=== PATIENT | male | born 1990 | race Caucasian/White ===

== ENCOUNTER 2023-07-23 10:09 | Emergency (ER) | payer OTHER, SELFPAY ==
--- NOTE | ~2023-07-23 | CT_ITS ---
EXAMINATION: CT ABDOMEN AND PELVIS WITHOUT CONTRAST CLINICAL INFORMATION: Right flank pain evaluate for stone hydro COMPARISON: None available. TECHNIQUE: Multidetector volumetric imaging was performed from the superior aspect of the liver through the pubic symphysis. Sagittal and coronal reformatted images were obtained on the technologist's workstation. This CT examination was performed using dose optimization techniques as appropriate, variously including the following: *Automated exposure control *Adjustment of mA and/or kV according to patient size (this includes techniques or standardized protocols for targeted exams where dose is matched to indication/reason for exam; i.e. extremities or head) *Use of iterative reconstruction technique DLP: 320.33 mGy-cm FINDINGS: LUNG BASES: The visualized lung bases are unremarkable. LIVER, GALLBLADDER, AND BILIARY TREE: The liver is normal in size, shape, and attenuation. No focal hepatic lesion or biliary ductal dilatation is present. The gallbladder is unremarkable with no evidence of radiopaque gallstones, gallbladder wall thickening, or obvious pericholecystic inflammatory changes. PANCREAS: Unremarkable. SPLEEN: Unremarkable. ADRENAL GLANDS: Unremarkable. KIDNEYS AND URETERS: Mild to moderate right-sided hydroureteronephrosis secondary to a 7 mm calculus at the right junction. Additional 3 mm calculus noted in the right renal upper pole. No left-sided nephrolithiasis or hydronephrosis. BLADDER: Mild urinary bladder wall thickening which may reflect elements of cystitis. GASTROINTESTINAL TRACT: Fecal loading throughout the colon. The small and large bowel are unremarkable. The appendix is unremarkable. ABDOMINAL WALL: Tiny fat filled umbilical hernia. LYMPH NODES: No enlarged lymph nodes per size criteria. VASCULAR: Abdominal aorta is nonaneurysmal. PELVIC VISCERA: Prostate measures 3.9 cm. OSSEOUS STRUCTURES: Unremarkable. CT/CT abdomen pelvis wo IV con IMPRESSION: 1. Mild to moderate right-sided hydroureteronephrosis secondary to a 7 mm calculus at the right junction. Additional 3 mm calculus noted in the right renal upper pole. 2. Mild urinary bladder wall thickening which may reflect elements of cystitis.
[2023-07-23 10:44] VITALS: BP 120/86; PULSE 61; RESP 18; TEMP 36.2; O2SAT 99; BMI 24.5
[2023-07-23] MEDS: Ondansetron ODT 4 MG TAB.RAPDIS TRANSLINGU (10:54)
[2023-07-23 10:56] LABS: MANUAL DIFF FLAG NO
[2023-07-23 10:58] LABS: Basophils Absolute Auto 0.1 X10*3/uL (0.0-0.2); Basophils Percent Auto 0.4 % (0-2); Eosinophils Absolute Auto 0.1 X10*3/uL (0.0-0.4); Eosinophils Percent Auto 0.7 % (0-4); Hematocrit 44.4 % (42.0-52.0); Hemoglobin 16.2 g/dl (14.0-18.0); Imm Gran Abs Auto 0.07 X10*3/uL (0.00-0.03); Imm Gran Pct Auto 0.4 % (0.0-0.4); Lymphocytes Absolute Auto 1.4 X10*3/uL (1.2-4.9); Lymphocytes Percent Auto 7.6 % (20-40); Mean Corpuscular HGB Conc 36.5 g/dl (31.0-36.0); Mean Corpuscular Hemoglobin 33.1 pg (27.0-33.0); Mean Corpuscular Volume 90.6 fL (80.0-98.0); Mean Platelet Volume 9.7 fL (9.4-12.4); Monocytes Absolute Auto 0.9 X10*3/uL (0.1-1.2); Monocytes Percent Auto 5.3 % (2-11); Neutrophils Absolute Auto 15.3 x10*3/uL (2.0-8.3); Neutrophils Percent Auto 85.6 % (45-73); Platelet Count 292 X10*3/uL (160-400); Red Cell Distribution Width 12.1 % (11.0-16.0); White Blood Count 17.9 X10*3/uL (4.8-10.8)
[2023-07-23 11:16] LABS: Alanine Aminotransferase 14 U/L (0-40); Albumin Level 4.8 g/dL (3.5-5.0); Alkaline Phosphatase 63 U/L (39-117); Anion Gap 18 (12-20); Aspartate Amino Transferase 26 U/L (5-37); Bilirubin Total 0.7 mg/dL (0.0-1.0); Blood Urea Nitrogen 18 mg/dL (9-16); Calcium 10.3 mg/dL (8.4-10.2); Carbon Dioxide 23 mmol/L (22-29); Chloride 103 mmol/L (96-108); Creatinine Clr Calc Pharmacy 64.2; Estimated Glomerular Filt Rate 57; Glucose Random 110 mg/dL (60-115); Potassium 4.3 mmol/L (3.3-5.1); Sodium 140 mmol/L (135-145); Total Protein 7.7 g/dL (6.5-8.0)
--- NOTE | 2023-07-23 12:22 | ED_ITS ---
HPI - Male Genitourinary General Chief complaint: Urogenital-Male Stated complaint: Kidney Stone Time Seen by Provider: 07/23/23 12:18 Source: patient, RN notes reviewed and old records reviewed Mode of arrival: ambulatory Limitations: no limitations History of Present Illness HPI Narrative: 33 year old male with no significant pmhx presents to the ED for evaluation of right flank pain x2 weeks. States he was seen at urgent care for this 2 weeks ago. He was told the only abnormality on labs was high white count . He was sent for outpatient ultrasound which showed inflammation of ureter . He was not advised to come to the ED. He states that the right flank pain eventually went away until yesterday when it acutely worsened. Reports nausea, vomiting and chills that began last night. Admits to vomiting up bile. He has been taking Tylenol without relief. Last dose of Tylenol at 8:00 a.m. this morning. This did not start after eating yesterday. Eating does not seem to worsen the pain. Admits to associated difficulty urinating however was able to provide urine sample in ED today. Denies any abdominal pain however does report minimal pain radiation to groin. Denies history of abdominal surgery. Denies history of renal stones. Denies documented fever, sore throat, cough, chest pain, sob, hematemesis, melena, hematochezia, brbpr, dysuria, hematuria. Related Data Previous Rx's ?Medication ?Instructions ?Recorded naproxen 500 mg tablet 500 mg PO BID PRN pain 7 days #14 07/23/23 tabs oxycodone 5 mg capsule 5 mg PO Q8H PRN pain 3 days #9 caps 07/23/23 tamsulosin 0.4 mg capsule (Flomax) 0.4 mg PO DAILY 7 days #7 caps 07/23/23 ondansetron 4 mg disintegrating 4 mg PO Q6H PRN nausea and 07/24/23 tablet vomiting #8 tabs Allergies Allergy/AdvReac Type Severity Reaction Status Date / Time No Known Allergies Allergy Verified 07/23/23 10:49 Review of Systems 2 Review of Systems: Constitutional: No fever, chills, fatigue, night sweats, weight changes ENT/Mouth: No ear pain, hearing loss, nasal congestion, sinus pain, rhinorrhea, sore throat Eyes: No eye pain, swelling, redness, vision changes, discharge Cardio: No chest pain, palpitations, MARTE, orthopnea, peripheral edema Pulm: No SOB, cough, sputum, wheezing, dyspnea, hemoptysis GI: No nausea, vomiting, hematemesis, abdominal pain, diarrhea, constipation, hematochezia, melena : No irregular bleeding, dysuria, frequency, urgency, hesitancy, hematuria, urinary flow changes, urinary incontinence or retention, +right flank pain MSK: No back pain, neck pain, joint pain, myalgias Skin: No lesions, rashes Neuro: No weakness, numbness, paresthesias, LOC, dizziness, headache Psych: No anxiety/panic, depression, SI/HI, AH/VH All other systems reviewed and are negative. [facility] Past Medical History Attestation statement: The following information was validated with the patient. Source: old records reviewed and nursing notes reviewed Surgical History (Updated 07/23/23 @ 15:56 by Tatyana Cotto RN) History of placement of ear tubes History of surgery on arm Social History Social History Alcohol intake: current Alcohol intake frequency: 0-2 drinks per day Alcohol type: beer, wine and hard liquor Smoked in Last 30 Days: Yes Use of substances other than those prescribed or required for medical reasons: Yes Substance Use Type: Marijuana Substance Use Frequency: Daily Advance Directives: No Advance Directives Information Provided: Yes Do you have a plan to hurt others: No Plan Physical Exam 2 Vital Signs: Vital Signs: Last Vital Signs Temp 97.9 F 07/23/23 20:39 Pulse 80 07/23/23 20:39 Resp 18 07/23/23 20:39 BP 127/80 07/23/23 20:39 Pulse Ox 98 07/23/23 20:39 O2 Del Method Room Air 07/23/23 20:39 BMI result Body Mass Index 24.5 Vital signs stable, afebrile. Const: Other: In obvious discomfort secondary to pain General: cooperative, healthy appearing and no acute distress O rientation/consciousness: patient oriented x3 Limitations: no limitations HEENT: Head: Yes normal to inspection, Yes No palpable skull fracture present, Yes normocephalic and Yes atraumatic Eyes: General: appearance normal, both eyes and all related structures C onjunctivae: conjunctivae normal Sclerae: sclerae normal Pupils: Equal, round and reactive pupils present Neck: Neck: Yes normal visual inspection, Yes full ROM, Yes no lymphadenopathy and Yes no meningeal signs Resp: Effort & Inspection: normal respiratory effort and able to speak in complete sentences Auscultation: clear to auscultation bilaterally Cardio: Rate: regular rate Rhythm: regular rhythm GI: Other: + abdomen soft, nondistended, nontender to palpation. No rebound tenderness or guarding. Normoactive bowel sounds x4. negative Person's sign. No McBurney point tenderness. Negative Rovsing sign. Inspection: Yes normal to inspection, No abdominal wall ecchymosis and No visible peristalsis : Other: + right CVAT Back/Spine/Pelvis: Other: No midline spinous tenderness or step off deformity. No paraspinal muscle tenderness. Skin: General skin exam: no rashes or lesions noted Neuro: General: patient oriented x3, gait normal and no meningeal signs C ranial nerves: Yes Equal, round and reactive pupils present Course Course Course Narrative: 1405-- CBC with leukocytosis to 17.9 with left shift. No anemia. H&H stable. Chemistry without acute electrolyte abnormality requiring intervention. SCARLETT with BUN 18 and creatinine 1.45 > patient receiving IV fluids. Normal liver function. Total bili WNL. Lactic acid WNL. lipase WNL > unlikely pancreatitis. urine showing high protein. no infection or blood. > unclear if increased WBC is secondary to multiple episodes of vomiting. No concern for sepsis at this time. patient received IV morphine and zofran for symptoms. awaiting CT read. 154-- CT abdomen/pelvis showing mild to moderate right-sided hydroureternephrosis secondary to 7 mm calculus at right junction with a 3 mm calculus noted in the right renal upper pole. I did discuss these findings with Dr. Gutierrez who currently on her way into a urology procedure however recommends another L of IV fluids at this time along with pain control. She will re- evaluate once she is out of the OR. 0.5 dilaudid ordered. 1652-- Spoke with Dr. Gutierrez who upon reviewing scan and chart, recommends 15mg toradol, a third liter of fluids and one dose of prednisone in ED. I did mention that the patient has a slight SCARLETT with BUN 18 and creatinine 1.45 and she states one time dose of Toradol 15 mg will be acceptable. She states that if his pain is well managed after these interventions, he may be discharged home on flomax x14 days and 2 day course of prednisone with outpatient follow up this week. 1755-- On re-evaluation, patient continues to endorse severe right flank pain. I do not feel comfortable discharging patient home at this time and pain is not well controlled. Will reach out to Dr. Gutierrez for recommendation. 1910-- Received call back from Dr. Gutierrez regarding patient's continued symptoms despite attempts at pain management. Patient last ate >8 hours ago. She states that she will review and call me back. Sign out given to Jigar MEDEROS pending uro call back and disposition. Dr. Gutierrez aware that Jigar is now that point of contact regarding this patient. He is stable at the end of my shift. Reevaluation(s) Reevaluation #1: Went to re-evaluate patient and patient states he feels better. Patient states pain is manageable with Dilaudid, and slightly returning but he is not in distress and wants to go home. Admission was discussed with patient. Patient's re-evaluation exam and history was discussed with Dr. Gutierrez of Urology who states patient can be discharged with Dilaudid naproxen and zofran. Patient agreeable with plan and will return if symptoms worsenend. patient explained worrisome sigs. Case discussed with Dr. Hermosillo who states because this is patient first time on narcotics, dilaudid will be too much for patient due to high risks of respiratory depression. She recommends oxycodone. patient agreeable with plan. Time: 20:37 Medications Administered Discontinued Medications Generic Name Dose Route Start Last Admin Trade Name Leilani PRN Reason Stop Dose Admin Acetaminophen 975 mg 07/23/23 13:09 07/23/23 13:23 Acetaminophen 325 Mg Tablet PO 07/23/23 13:10 975 mg ONCE ONE Administration Hydromorphone HCl 0.5 mg 07/23/23 16:08 07/23/23 16:18 Hydromorphone Hcl 0.5 Mg/0.5 Ml Syringe IVPUSH 07/23/23 16:09 0.5 mg ONCE ONE Administration Protocol Hydromorphone HCl 0.5 mg 07/23/23 17:52 07/23/23 18:19 Hydromorphone Hcl 0.5 Mg/0.5 Ml Syringe IM 07/23/23 17:53 0.5 mg ONCE ONE Administration Protocol Sodium Chloride 1,000 mls @ 999 mls/hr 07/23/23 12:30 07/23/23 13:50 Ns IV 07/23/23 13:30 Infused .Q1H1M MIGUEL Infusion Sodium Chloride 1,000 mls @ 999 mls/hr 07/23/23 15:45 07/23/23 17:00 Ns IV 07/23/23 16:45 Infused .Q1H1M MIGUEL Infusion Sodium Chloride 1,000 mls @ 999 mls/hr 07/23/23 17:00 07/23/23 18:01 Ns IV 07/23/23 18:00 Infused .Q1H1M MIGUEL Infusion Ketorolac Tromethamine 15 mg 07/23/23 16:56 07/23/23 16:58 Ketorolac Tromethamine 15 Mg/Ml Vial IVPUSH 07/23/23 16:57 15 mg ONCE ONE Administration Morphine Sulfate 2 mg 07/23/23 12:30 07/23/23 12:45 Morphine Sulfate 2 Mg/Ml Cartridge IVPUSH 07/23/23 12:31 2 mg ONCE ONE Administration Protocol Morphine Sulfate 2 mg 07/23/23 14:12 07/23/23 14:17 Morphine Sulfate 2 Mg/Ml Cartridge IVPUSH 07/23/23 14:13 2 mg ONCE ONE Administration Protocol Ondansetron HCl 4 mg 07/23/23 10:50 07/23/23 10:54 Ondansetron Odt 4 Mg Tab.Rapdis TRANSLINGU 07/23/23 10:51 4 mg ONCE ONE Administration Ondansetron HCl 4 mg 07/23/23 12:43 07/23/23 12:45 Ondansetron Hcl 4 Mg/2 Ml Vial IVPUSH 07/23/23 12:44 4 mg ONCE ONE Administration Prednisone 20 mg 07/23/23 16:51 07/23/23 16:56 Prednisone 20 Mg Tablet PO 07/23/23 16:52 20 mg ONCE ONE Administration Medical Decision Making Medical Decision Making MDM Narrative: 33 year old male with no significant pmhx presents to the ED for evaluation of right flank pain x2 weeks. Vital signs stable. Afebrile. Normotensive. Not tachycardic. On exam, abdomen soft, nondistended, nontender to palpation. No rebound tenderness or guarding. Normoactive bowel sounds x4. negative Person's sign. No McBurney point tenderness. Negative Rovsing sign. There is left CVAT. Ambulating with steady gait. Skin W/D/I. No rashes. Differential diagnosis includes UTI, renal colic, nephrolithiasis, hydronephrosis, pyelonephritis, cholecystitis, appendicitis. Unlikely constipation, SBO, ischemic bowel, pancreatitis. Plan for labs, lactic, cultures, UA, pain control, IVF, CT scan, and re- evaluation. Differential Diagnosis Differential Diagnoses: The differential diagnosis associated with the presentation includes as above. Admission/Observation Consideration of admission/observation: Escalation of care including admission/observation considered Admission considered on presentation. Consult Healthcare Provider Management of the patient was discussed with: Self Storage Manager (Urologist Dr. Mg Gutierrez) Lab Data MDM Lab Attestation statement: I reviewed the patient's lab results. as above. 07/23/23 10:53 07/23/23 10:53 Labs: Lab Results 07/23/23 07/23/23 07/23/23 Range/Units 10:53 12:39 12:40 WBC 17.9 H (4.8-10.8) X10*3/uL RBC 4.90 (4.60-5.80) X10*6/uL Hgb 16.2 (14.0-18.0) g/dl Hct 44.4 (42.0-52.0) % MCV 90.6 (80.0-98.0) fL MCH 33.1 H (27.0-33.0) pg MCHC 36.5 H (31.0-36.0) g/dl RDW 12.1 (11.0-16.0) % Plt Count 292 (160-400) X10*3/uL MPV 9.7 (9.4-12.4) fL Immature Gran % (Auto) 0.4 (0.0-0.4) % Neut % (Auto) 85.6 H (45-73) % Lymph % (Auto) 7.6 L (20-40) % [place] % (Auto) 5.3 (2-11) % Eos % (Auto) 0.7 (0-4) % Baso % (Auto) 0.4 (0-2) % Lymph # (Auto) 1.4 (1.2-4.9) X10*3/uL [place] # (Auto) 0.9 (0.1-1.2) X10*3/uL Eos # (Auto) 0.1 (0.0-0.4) X10*3/uL Baso # (Auto) 0.1 (0.0-0.2) X10*3/uL Abs Immat Gran (auto) 0.07 H (0.00-0.03) X10*3/uL Absolute Neuts (auto) 15.3 H (2.0-8.3) x10*3/uL Absolute Nucleated RBC 0.000 (0.0-0.012) X10*3/uL Nucleated RBC % (auto) 0.0 (0.0-0.2) /100WBC Sodium 140 (135-145) mmol/L Potassium 4.3 (3.3-5.1) mmol/L Chloride 103 (96-108) mmol/L Carbon Dioxide 23 (22-29) mmol/L Anion Gap 18 (12-20) BUN 18 H (9-16) mg/dL Creatinine 1.45 H (0.5-1.4) mg/dL Estim Creat Clear Calc 64.2 Estimated GFR 57 Random Glucose 110 (60-115) mg/dL Lactic Acid 1.1 (0.5-2.0) mmol/L Calcium 10.3 H (8.4-10.2) mg/dL Total Bilirubin 0.7 (0.0-1.0) mg/dL AST 26 (5-37) U/L ALT 14 (0-40) U/L Alkaline Phosphatase 63 (39-117) U/L Total Protein 7.7 (6.5-8.0) g/dL Albumin 4.8 (3.5-5.0) g/dL Lipase 22 (8-78) U/L Urine Color Yellow Urine Appearance Cloudy Urine pH >= 9.0 (5.0-9.0) Ur Specific [place] 1.020 (1.005-1.025) Urine Protein 30 (1+) H (Neg-Trace) mg/dL Urine Glucose (UA) Negative (Negative) mg/dL Urine Ketones 40 (Negative) mg/dL Urine Blood Negative (Negative) Urine Nitrite Negative (Negative) Ur Leukocyte Esterase Negative (Negative) Urine RBC 0-2 (0-2) /HPF Urine WBC 0-5 (0-5) /HPF Ur Squamous Epith Cells 0-2 (0-2) /HPF Urine Bacteria None Seen (None Seen) Hyaline Casts 0-2 (0-2) /LPF Independent Interpretation I performed an independent interpretation of an: CT Scan Interpretation: CT abd/pelvis shows stone at right UVJ, agree with radiologist's interpretation. Radiology Impression Discussion of test interpretation with radiology: I have reviewed the radiologist's reading. Radiologist Impression: EXAMINATION: CT ABDOMEN AND PELVIS WITHOUT CONTRAST CLINICAL INFORMATION: Right flank pain evaluate for stone hydro COMPARISON: None available. TECHNIQUE: Multidetector volumetric imaging was performed from the superior aspect of the liver through the pubic symphysis. Sagittal and coronal reformatted images were obtained on the technologist's workstation. This CT examination was performed using dose optimization techniques as appropriate, variously including the following: *Automated exposure control *Adjustment of mA and/or kV according to patient size (this includes techniques or standardized protocols for targeted exams where dose is matched to indication/reason for exam; i.e. extremities or head) *Use of iterative reconstruction technique DLP: 320.33 mGy-cm FINDINGS: LUNG BASES: The visualized lung bases are unremarkable. LIVER, GALLBLADDER, AND BILIARY TREE: The liver is normal in size, shape, and attenuation. No focal hepatic lesion or biliary ductal dilatation is present. The gallbladder is unremarkable with no evidence of radiopaque gallstones, gallbladder wall thickening, or obvious pericholecystic inflammatory changes. PANCREAS: Unremarkable. SPLEEN: Unremarkable. ADRENAL GLANDS: Unremarkable. KIDNEYS AND URETERS: Mild to moderate right-sided hydroureteronephrosis secondary to a 7 mm calculus at the right junction. Additional 3 mm calculus noted in the right renal upper pole. No left-sided nephrolithiasis or hydronephrosis. BLADDER: Mild urinary bladder wall thickening which may reflect elements of cystitis. GASTROINTESTINAL TRACT: Fecal loading throughout the colon. The small and large bowel are unremarkable. The appendix is unremarkable. ABDOMINAL WALL: Tiny fat filled umbilical hernia. LYMPH NODES: No enlarged lymph nodes per size criteria. VASCULAR: Abdominal aorta is nonaneurysmal. PELVIC VISCERA: Prostate measures 3.9 cm. OSSEOUS STRUCTURES: Unremarkable. CT/CT abdomen pelvis wo IV con IMPRESSION: 1. Mild to moderate right-sided hydroureteronephrosis secondary to a 7 mm calculus at the right junction. Additional 3 mm calculus noted in the right renal upper pole. 2. Mild urinary bladder wall thickening which may reflect elements of cystitis. Independent Historian Clinical information obtained from an independent historian. History obtained from or confirmed by: Parent (dad) Prescription Management I considered prescription management with: Pain Medication and Other (prednisone, flomax) Social Determinants Patient?s care significantly limited by Social Determinants of Health including: Other Social Determinant of Health Critical Care Time Critical Care Time Critical Care Time: Yes Total Critical Care Time: 120 Attestation: Critical care time in the amount of 120 minutes has been provided to the patient in terms of direct patient care, frequent reevaluation, consultation with urology, review and interpretation of medical data and results, and management of potentially life-threatening conditions. This is all outside of any medical procedures. Discharge Plan Discharge Clinical Impression: Calculus of ureterovesical junction (UVJ) Patient Disposition: Home, Self-Care Instructions: Ureteral Stones (ED) Additional Instructions: RECOMMEND FOLLOW-UP WITH UROLOGIST TOMORROW. RETURN TO ED IMMEDIATELY FOR SEVERE PAIN IN THE ABDOMEN, FLANK PAIN, FEVER, CHILLS, NAUSEA, VOMITING, DYSURIA, HEMATURIA, OR ANY OTHER CONCERNING SYMPTOMS. CT/CT abdomen pelvis wo IV con IMPRESSION: 1. Mild to moderate right-sided hydroureteronephrosis secondary to a 7 mm calculus at the right junction. Additional 3 mm calculus noted in the right renal upper pole. 2. Mild urinary bladder wall thickening which may reflect elements of cystitis. Prescriptions: New oxycodone 5 mg capsule 5 mg PO Q8H PRN (Reason: pain) 3 Days Qty: 9 0RF Rx Instructions: Partial Fill upon patient request. naproxen 500 mg tablet 500 mg PO BID PRN (Reason: pain) 7 Days Qty: 14 0RF tamsulosin [Flomax] 0.4 mg capsule 0.4 mg PO DAILY 7 Days Qty: 7 0RF ondansetron 4 mg tablet,disintegrating 4 mg PO Q6H PRN (Reason: nausea and vomiting) Qty: 8 0RF Referrals: [facility] [Provider Group] (Ureter stone 7 mm) Stand Alone Forms: Work/School Release Interventions: ED Discharge Assessment Last Done: 07/23/23 20:39 Discharge Date/Time: 07/23/23 20:46 Print Language: Czech
[2023-07-23] MEDS: ondansetron HCL 4 MG/2 ML VIAL IVPUSH (12:45)
[2023-07-23] MEDS: Morphine Sulfate 2 MG/ML CARTRIDGE IVPUSH ×2 (12:45→14:17)
[2023-07-23] MEDS: 0.9 % Sodium Chloride 1,000 ML 999 ML IV ×3 (12:45→17:00)
--- NOTE | 2023-07-23 12:51 | PC.NURSE ---
patient a&ox3, iv inserted, bc drawn, ivf started per order, pt medicated per order, call robertson within reach, will continue to monitor
[2023-07-23 12:55] LABS: Appearance Urine Cloudy; Color Urine Yellow; Glucose Urine UA Negative (Negative); Leukocyte Esterase Urine Negative (Negative); Nitrite Urine Negative (Negative); PH >= 9.0 (5.0-9.0); UMIC TRIGGER UACC YES; Urine Blood Negative (Negative); Urine Ketones 40 mg/dL (Negative); Urine Protein 30 (1+) mg/dL (Neg-Trace)
[2023-07-23 12:57] LABS: Bacteria Urine None Seen (None Seen); Hyaline Casts Urine 0-2 /LPF (0-2); RBC Urine 0-2 /HPF (0-2); Squamous Epithelial Cell Urine 0-2 /HPF (0-2); WBC Urine 0-5 /HPF (0-5)
[2023-07-23 13:06] LABS: Lactic Acid 1.1 mmol/L (0.5-2.0)
[2023-07-23] MEDS: Acetaminophen 325 MG TABLET 975 MG PO (13:23)
[2023-07-23 13:51] LABS: Lipase 22 U/L (8-78)
--- NOTE | 2023-07-23 14:20 | PC.NURSE ---
pt medicated for 9/10 flank pain, call robertson within reach, will continue to monitor
[2023-07-23] MEDS: HYDROmorphone HCl 0.5 MG/0.5 ML SYRINGE IVPUSH (16:18)
--- NOTE | 2023-07-23 16:21 | PC.NURSE ---
pt medicated per order
--- NOTE | 2023-07-23 16:41 | PC.NURSE ---
pt a&ox3, pt c/o increasing pain- pt medicated for pain per order, IVF continue to run per order, call robertson within reach, will continue to monitor
[2023-07-23] MEDS: predniSONE 20 MG TABLET PO (16:56)
[2023-07-23] MEDS: Ketorolac Tromethamine 15 MG/ML VIAL IVPUSH (16:58)
[2023-07-23] MEDS: HYDROmorphone HCl 0.5 MG/0.5 ML SYRINGE IM (18:19)
--- NOTE | 2023-07-23 18:21 | PC.NURSE ---
pt medicated for 10 pain
[2023-07-23 20:02] VITALS: BP 127/80; PULSE 80; RESP 18; TEMP 36.6; O2SAT 98
--- NOTE | 2023-07-23 20:38 | PC.NURSE ---
Pt a&o, no sob or chest pain, reviewed discharge instructions with pt , pt verbalized understanding no sign of distress.
[2023-07-23 20:39] VITALS: BP 127/80; PULSE 80; RESP 18; TEMP 36.6; O2SAT 98
== END 2023-07-23 20:46 | disposition home or self-care (01) ==
PROVIDERS: Physician Assistant Medical; Emergency Provider Emergency Medicine
DX: N13.2 Hydronephrosis with renal and ureteral calculous obstruction (principal); F17.210 Nicotine dependence, cigarettes, uncomplicated
CPT/HCPCS: 36415; 74176; 80053; 81001; 83605; 83690; 85025; 87040; 96361; 96372; 96374; 96375; 96376; 99285; J1170; J1885; J2270; J2405

== ENCOUNTER 2023-07-26 06:46 | Day surgery (SDC) | payer OTHER, SELFPAY ==
[2023-07-26] VITALS (10 sets, daily range): BP systolic 119–130; BP diastolic 63–83; PULSE 61–77; RESP 13–20; TEMP 25.5–36.8; O2SAT 98–100; BMI 24.5
--- NOTE | ~2023-07-26 | US_ITS ---
EXAMINATION: US RENAL RIGHT CLINICAL INFORMATION: Right flank pain. COMPARISON: CT abdomen/pelvis from 07/23/2023 TECHNIQUE: Sonographic imaging examination is focused on the right kidney. FINDINGS: The right kidney measures 10.7 x 4.9 x 6.2 cm (sag x AP x trans). The renal cortical thickness is normal. No focal parenchymal lesion. The cortex is diffusely hyperechoic. Query if there is any history of parenchymal renal disease. [id number] hydronephrosis is present. No perinephric fluid collection. 0.3 cm echogenic focus at the upper pole is consistent with a calyceal stone. Also, there are other small < 0.3 cm echogenic foci within calyces suspicious for additional sites of nephrolithiasis. Images acquired at the level the bladder show a stone at the ureterovesical junction measuring up to 0.7 cm in length. US/US renal RT IMPRESSION: * There is an obstructing stone at the right ureterovesical junction. * Right renal nephrolithiasis is evident. * The renal cortex is diffusely hyperechoic; correlate for any history of medical renal disease.
--- NOTE | ~2023-07-26 | FL_ITS ---
EXAMINATION: XR FLUOROSCOPY WITH IMAGES CLINICAL INFORMATION: Ureteroscopy, retrograde pyelography, laser right. COMPARISON: None available. TECHNIQUE: Fluoroscopy Supervised By: Dr. Srinivas Fernández. Fluoroscopy Time: 11.8 seconds. Cumulative Dose: 2.33 mGy. Images: 1. FINDINGS: Intraoperative fluoroscopy and spot films were performed during a procedure in the OR. Single image shows a portion of a ureteral stent. Please see Dr. Srinivas Fernández's report for complete details. FL/FL guidance in OR IMPRESSION: Intraoperative fluoroscopy and spot films were obtained. Please see Dr. Srinivas Fernández's report for complete details.
[2023-07-26 07:14] LABS: MANUAL DIFF FLAG NO
[2023-07-26 07:17] LABS: Basophils Absolute Auto 0.1 X10*3/uL (0.0-0.2); Basophils Percent Auto 0.5 % (0-2); Eosinophils Absolute Auto 0.8 X10*3/uL (0.0-0.4); Eosinophils Percent Auto 5.3 % (0-4); Hematocrit 44.4 % (42.0-52.0); Hemoglobin 15.3 g/dl (14.0-18.0); Imm Gran Abs Auto 0.06 X10*3/uL (0.00-0.03); Imm Gran Pct Auto 0.4 % (0.0-0.4); Lymphocytes Absolute Auto 2.2 X10*3/uL (1.2-4.9); Lymphocytes Percent Auto 15.3 % (20-40); Mean Corpuscular HGB Conc 34.5 g/dl (31.0-36.0); Mean Corpuscular Hemoglobin 32.7 pg (27.0-33.0); Mean Corpuscular Volume 94.9 fL (80.0-98.0); Mean Platelet Volume 9.6 fL (9.4-12.4); Monocytes Absolute Auto 1.3 X10*3/uL (0.1-1.2); Monocytes Percent Auto 8.9 % (2-11); Neutrophils Absolute Auto 10.2 x10*3/uL (2.0-8.3); Neutrophils Percent Auto 69.6 % (45-73); Platelet Count 281 X10*3/uL (160-400); Red Blood Count 4.68 X10*6/uL (4.60-5.80); Red Cell Distribution Width 12.4 % (11.0-16.0); White Blood Count 14.6 X10*3/uL (4.8-10.8)
[2023-07-26 07:18] LABS: Appearance Urine Cloudy; Color Urine Dark Yellow; Glucose Urine UA Negative (Negative); Leukocyte Esterase Urine Small (1+) (Negative); Nitrite Urine Negative (Negative); Specific Gravity - Urine >= 1.030 (1.005-1.025); UMIC TRIGGER UACC YES; Urine Blood Large (3+) (Negative); Urine Ketones 15 mg/dL (Negative); Urine Protein 30 (1+) mg/dL (Neg-Trace)
[2023-07-26 07:36] LABS: Alanine Aminotransferase 13 U/L (0-40); Albumin Level 4.7 g/dL (3.5-5.0); Alkaline Phosphatase 55 U/L (39-117); Anion Gap 13 (12-20); Aspartate Amino Transferase 19 U/L (5-37); Bacteria Urine None Seen (None Seen); Bilirubin Direct 0.3 mg/dL (0.0-0.5); Bilirubin Total 0.7 mg/dL (0.0-1.0); Blood Urea Nitrogen 17 mg/dL (9-16); Calcium Oxalate Crystals Urine Present; Carbon Dioxide 30 mmol/L (22-29); Chloride 101 mmol/L (96-108); Creatinine Clr Calc Pharmacy 64.2; Estimated Glomerular Filt Rate 57; Glucose Random 90 mg/dL (60-115); Hyaline Casts Urine 0-2 /LPF (0-2); Lipase 42 U/L (8-78); Potassium 3.7 mmol/L (3.3-5.1); RBC Urine >20 /HPF (0-2); Sodium 140 mmol/L (135-145); Total Protein 7.4 g/dL (6.5-8.0); UACC Culture Trigger YES
--- NOTE | 2023-07-26 08:03 | ED_ITS ---
HPI - Male Genitourinary General Chief complaint: Urogenital-Male Stated complaint: ureteral stone Time Seen by Provider: 07/26/23 07:50 Source: patient and old records reviewed Mode of arrival: ambulatory Limitations: no limitations History of Present Illness HPI Narrative: 33 yo male with no sig PMH seen here on 07/22 dx with R UVJ stone 7mm obstructive by CT scan - urology was involved and patient was discharged home after pain control with Rx naproxen, oxycodone, flomax, zofran he returns back today with c/o return of flank pain and nausea. He states he is making little urine. He is not having fevers. Taking the medications as prescribed. Onset (ago): week(s) (2) Duration: intermittent Location: right flank Severity: severe Quality: stabbing Relieving factors: none Exacerbating factors: none Context: other (known R ureteral stone) Associated symptoms: Reports nausea/vomiting Related Data Previous Rx's ?Medication ?Instructions ?Recorded naproxen 500 mg tablet 500 mg PO BID PRN pain 7 days #14 07/23/23 tabs oxycodone 5 mg capsule 5 mg PO Q8H PRN pain 3 days #9 caps 07/23/23 tamsulosin 0.4 mg capsule (Flomax) 0.4 mg PO DAILY 7 days #7 caps 07/23/23 ondansetron 4 mg disintegrating 4 mg PO Q6H PRN nausea and 07/24/23 tablet vomiting #8 tabs Allergies Allergy/AdvReac Type Severity Reaction Status Date / Time No Known Allergies Allergy Verified 07/26/23 06:56 Review of Systems 2 Review of Systems: Constitutional : No Fever, No Chills ENT/Mouth : No sore throat Eyes: No Eye Pain, No Swelling, No Redness Cardiovascular : No Chest Pain, No SOB Respiratory : No Cough, No Sputum, No Wheezing Gastrointestinal : positive Nausea, no Vomiting, No Diarrhea, positive abdominal pain Genitourinary : no Dysuria, no urinary frequency, positive Hematuria, positive Flank Pain Musculoskeletal : No joint pain, No Myalgias Skin : No Skin Lesions, No rash Neuro : No Weakness, No Numbness, No Headache Psych : No Anxiety/Panic, No Depression All other systems reviewed and are negative PMFSH Past Medical History Attestation statement: The following information was validated with the patient. Source: old records reviewed Medical History Ureteral stone with hydronephrosis Surgical History History of placement of ear tubes History of surgery on arm Social History Social History Alcohol intake: current Alcohol intake frequency: 0-2 drinks per day Alcohol type: beer, wine and hard liquor Smoked in Last 30 Days: No Use of substances other than those prescribed or required for medical reasons: No Substance Use Type: Marijuana Advance Directives: No Advance Directives Information Provided: No Do you have a plan to hurt others: No Plan Physical Exam 2 Vital Signs: Vital Signs: Last Vital Signs Temp 78 F L 07/26/23 10:18 Pulse 64 07/26/23 12:57 Resp 18 07/26/23 12:58 BP 119/70 07/26/23 12:57 Pulse Ox 98 07/26/23 12:57 O2 Del Method Room Air 07/26/23 12:57 BMI result Body Mass Index 24.5 Appearance: Alert. Oriented X3. No acute distress. Eyes: Pupils equal, round and reactive to light. ENT: Pharynx normal. Neck: Normal inspection. Neck supple. CVS: Normal heart rate and rhythm. Pulses normal. Respiratory: No respiratory distress. Breath sounds normal. Abdomen: Soft and mild R sided abdominal CVA ttp Skin: Skin warm and dry. Normal skin color. Normal skin turgor. Extremities: No lower extremity edema. No calf ttp Neuro: Oriented X 3. No motor deficit. No sensory deficit. Medications Administered Generic Name Dose Route Start Last Admin Trade Name Freq PRN Reason Stop Dose Admin Hydromorphone HCl 1 mg 07/26/23 09:32 07/26/23 10:21 Hydromorphone Hcl 1 Mg/Ml Syringe IVPUSH 1 mg Q3H PRN Administration Pain, Moderate(Pain Scale 4-6) Protocol Sodium Chloride 1,000 mls @ 100 mls/hr 07/26/23 09:45 07/26/23 10:17 Ns IVCONT 100 mls/hr .Q10H MIGUEL Administration Discontinued Medications Generic Name Dose Route Start Last Admin Trade Name Freq PRN Reason Stop Dose Admin Hydromorphone HCl 1 mg 07/26/23 08:14 07/26/23 08:32 Hydromorphone Hcl 1 Mg/Ml Syringe IVPUSH 07/26/23 08:15 1 mg ONCE ONE Administration Protocol Hydromorphone HCl 0.1 mg 07/26/23 12:32 07/26/23 12:58 Hydromorphone Hcl 0.5 Mg/0.5 Ml Syringe IVPUSH 07/26/23 12:33 0.1 mg ONCE ONE Administration Protocol Sodium Chloride 1,000 mls @ 999 mls/hr 07/26/23 08:13 07/26/23 10:17 Ns IV 07/26/23 09:13 Infused .Q1H1M ONE Infusion Ondansetron HCl 4 mg 07/26/23 08:14 07/26/23 08:32 Ondansetron Hcl 4 Mg/2 Ml Vial IVPUSH 07/26/23 08:15 4 mg ONCE ONE Administration Medical Decision Making Medical Decision Making MDM Narrative: 33 yo male with no sig PMH seen here on 07/22 dx with R UVJ stone 7mm obstructive by CT scan here with recurrent pain but no fevers at this time will need basic labs, UA, US to evaluate stone placement. IVF and IV dilaudid for pain ordered. Differential Diagnosis Differential Diagnoses: The differential diagnosis associated with the presentation includes renal colic, obstructive uropathy Admission/Observation Consideration of admission/observation: Escalation of care including admission/observation considered repeat visits likely admission for stent Consult Healthcare Provider Management of the patient was discussed with: [facility] (Dr. Fernández ) Dr. Fernández to take to surgery today patient has been NPO since last night other than pills and medications Lab Data [facility] Lab Attestation statement: I reviewed the patient's lab results. 07/26/23 07:06 07/26/23 07:06 Labs: Lab Results 07/26/23 Range/Units 07:06 WBC 14.6 H (4.8-10.8) X10*3/uL RBC 4.68 (4.60-5.80) X10*6/uL Hgb 15.3 (14.0-18.0) g/dl Hct 44.4 (42.0-52.0) % MCV 94.9 (80.0-98.0) fL MCH 32.7 (27.0-33.0) pg MCHC 34.5 (31.0-36.0) g/dl RDW 12.4 (11.0-16.0) % Plt Count 281 (160-400) X10*3/uL MPV 9.6 (9.4-12.4) fL Immature Gran % (Auto) 0.4 (0.0-0.4) % Neut % (Auto) 69.6 (45-73) % Lymph % (Auto) 15.3 L (20-40) % [place] % (Auto) 8.9 (2-11) % Eos % (Auto) 5.3 H (0-4) % Baso % (Auto) 0.5 (0-2) % Lymph # (Auto) 2.2 (1.2-4.9) X10*3/uL [place] # (Auto) 1.3 H (0.1-1.2) X10*3/uL Eos # (Auto) 0.8 H (0.0-0.4) X10*3/uL Baso # (Auto) 0.1 (0.0-0.2) X10*3/uL Abs Immat Gran (auto) 0.06 H (0.00-0.03) X10*3/uL Absolute Neuts (auto) 10.2 H (2.0-8.3) x10*3/uL Absolute Nucleated RBC 0.000 (0.0-0.012) X10*3/uL Nucleated RBC % (auto) 0.0 (0.0-0.2) /100WBC Sodium 140 (135-145) mmol/L Potassium 3.7 (3.3-5.1) mmol/L Chloride 101 (96-108) mmol/L Carbon Dioxide 30 H (22-29) mmol/L Anion Gap 13 (12-20) BUN 17 H (9-16) mg/dL Creatinine 1.45 H (0.5-1.4) mg/dL Estim Creat Clear Calc 64.2 Estimated GFR 57 Random Glucose 90 (60-115) mg/dL Calcium 10.0 (8.4-10.2) mg/dL Total Bilirubin 0.7 (0.0-1.0) mg/dL Direct Bilirubin 0.3 (0.0-0.5) mg/dL AST 19 (5-37) U/L ALT 13 (0-40) U/L Alkaline Phosphatase 55 (39-117) U/L Total Protein 7.4 (6.5-8.0) g/dL Albumin 4.7 (3.5-5.0) g/dL Lipase 42 (8-78) U/L Urine Color Dark Yellow Urine Appearance Cloudy Urine pH 6.0 (5.0-9.0) Ur Specific [place] >= 1.030 H (1.005-1.025) Urine Protein 30 (1+) H (Neg-Trace) mg/dL Urine Glucose (UA) Negative (Negative) mg/dL Urine Ketones 15 (Negative) mg/dL Urine Blood Large (3+) H (Negative) Urine Nitrite Negative (Negative) Ur Leukocyte Esterase Small (1+) H (Negative) Urine RBC >20 H (0-2) /HPF Urine WBC 11-20 H (0-5) /HPF Ur Squamous Epith Cells 3-5 (0-2) /HPF Calcium Oxalate Crystal Present Urine Bacteria None Seen (None Seen) Hyaline Casts 0-2 (0-2) /LPF Independent Interpretation I performed an independent interpretation of an: Ultrasound (obstruction UVJ stone) Radiology Impression Discussion of test interpretation with radiology: I have reviewed the radiologist's reading. External Record Review External record reviewed: Inpatient record Critical Care Time Critical Care Time Critical Care Time: Yes Total Critical Care Time: 45 Attestation: repeat multiple doses of IV pain meds - dilaudid with relief, consult to urology, transfer to surgery I attest to this time spent taking care of the patient Discharge Plan Discharge Clinical Impression: Ureterolithiasis Patient Disposition: Admitted As Inpatient
[2023-07-26] MEDS: ondansetron HCL 4 MG/2 ML VIAL IVPUSH (08:32)
[2023-07-26] MEDS: HYDROmorphone HCl 1 MG/ML SYRINGE IVPUSH ×3 (08:32→16:51)
[2023-07-26] MEDS: 0.9 % Sodium Chloride 1,000 ML 999 ML IV (08:32)
[2023-07-26] MEDS: 0.9 % Sodium Chloride 1,000 ML 100 ML IVCONT (10:17)
[2023-07-26] MEDS: HYDROmorphone HCl 0.5 MG/0.5 ML SYRINGE 0.1 MG IVPUSH (12:58)
--- NOTE | 2023-07-26 13:26 | P.CNUR_ITS ---
History of Present Illness Consult details Consult date: 07/26/23 Narrative: CC: Distal right ureteric stone Manuel is a 33-year-old male. No significant past medical history. Seen in hospital proximally 3 days ago with right UVJ stone 7 mm and hydronephrosis on CT Has not pass stone Nine minimal improvement with conservative therapy Return with flank pain and nausea. Little urine production. Denies fevers. Laboratories WBC 14.6, creatinine 1.5 Does have a family history of stones Imaging 08/01 CT Mild to moderate right-sided hydroureteronephrosis secondary to a 7 mm calculus at the right junction Recommend intervention with cystoscopy, right ureteroscopy, ureteroscopy, stone basketing and stent placement Review of Systems 2 Constitutional: Constitutional: Reports as per HPI and Reports no additional constitutional complaints Cardiovascular: Cardiovascular: Reports as per HPI and Reports no additional cardiovascular complaints Respiratory: Respiratory: Reports as per HPI and Reports no additional respiratory complaints Gastrointestinal: Gastrointestinal: Reports as per HPI and Reports no additional gastrointestinal complaints Genitourinary: Genitourinary: Reports as per HPI Musculoskeletal: Musculoskeletal: Reports no additional musculoskeletal complaints and Reports as per HPI Neurologic: Reports system reviewed and no additional complaints, except as documented and Reports as per HPI PMFSH Past Medical History Medical History Ureteral stone with hydronephrosis Surgical History Surgical History History of placement of ear tubes History of surgery on arm Social History Social History Alcohol intake: current Alcohol intake frequency: 0-2 drinks per day Alcohol type: beer, wine and hard liquor Smoked in Last 30 Days: No Use of substances other than those prescribed or required for medical reasons: No Substance Use Type: Marijuana Advance Directives: No Advance Directives Information Provided: No Do you have a plan to hurt others: No Plan Meds Allergies Allergy/AdvReac Type Severity Reaction Status Date / Time No Known Allergies Allergy Verified 07/26/23 06:56 Active Medications: Current Medications Hydromorphone HCl (Hydromorphone Hcl 1 Mg/Ml Syringe) 1 mg IVPUSH Q3H PRN; Protocol PRN Reason: Pain, Moderate(Pain Scale 4-6) Last Admin: 07/26/23 10:21 Dose: 1 mg Sodium Chloride (Ns) 1,000 mls @ 100 mls/hr IVCONT .Q10H MIGUEL Last Admin: 07/26/23 10:17 Dose: 100 mls/hr Levofloxacin (Levaquin) 500 mg in 100 mls @ 100 mls/hr IV PREOP ONE Stop: 07/26/23 13:35 Ondansetron HCl (Ondansetron Hcl 4 Mg/2 Ml Vial) 4 mg IVPUSH Q8H PRN PRN Reason: Nausea and Vomiting Physical Exam 2 Vital Signs: Vital Signs: Last Vital Signs Temp 78 F L 07/26/23 10:18 Pulse 64 07/26/23 12:57 Resp 18 07/26/23 12:58 BP 119/70 07/26/23 12:57 Pulse Ox 98 07/26/23 12:57 O2 Del Method Room Air 07/26/23 12:57 BMI result Body Mass Index 24.5 Const: General: cooperative, healthy appearing, comfortable and no acute distress Orientation/consciousness: patient oriented x3 HEENT: Face and sinus: Yes normal facial exam Mouth: moist mucous membranes Neck: Neck: Yes normal visual inspection, Yes full ROM and Yes trachea midline Chest: Chest palpation & inspection: normal inspection of the chest Resp: Effort & Inspection: normal respiratory effort, able to speak in complete sentences and no respiratory distress GI: Inspection: Yes normal to inspection Back/Spine/Pelvis: Cervical Spine: normal cervical lordosis Thoracic/Lumbar Spine: thoracic and lumbar spine normal to inspection Skin: General skin exam: no rashes or lesions noted Neuro: General: patient oriented x3, tone normal and moves all extremities Extrem: General: Yes normal to inspection and Yes capillary refill normal Results Labs 07/26/23 07:06 07/26/23 07:06 Labs: Abnormal lab results 07/26/23 Range/Units 07:06 WBC 14.6 H (4.8-10.8) X10*3/uL Lymph % (Auto) 15.3 L (20-40) % Eos % (Auto) 5.3 H (0-4) % [place] # (Auto) 1.3 H (0.1-1.2) X10*3/uL Eos # (Auto) 0.8 H (0.0-0.4) X10*3/uL Abs Immat Gran (auto) 0.06 H (0.00-0.03) X10*3/uL Absolute Neuts (auto) 10.2 H (2.0-8.3) x10*3/uL Carbon Dioxide 30 H (22-29) mmol/L BUN 17 H (9-16) mg/dL Creatinine 1.45 H (0.5-1.4) mg/dL Ur Specific [place] >= 1.030 H (1.005-1.025) Urine Protein 30 (1+) H (Neg-Trace) mg/dL Urine Blood Large (3+) H (Negative) Ur Leukocyte Esterase Small (1+) H (Negative) Urine RBC >20 H (0-2) /HPF Urine WBC 11-20 H (0-5) /HPF Short CBC 07/26/23 Range/Units 07:06 WBC 14.6 H (4.8-10.8) X10*3/uL Hgb 15.3 (14.0-18.0) g/dl Hct 44.4 (42.0-52.0) % Plt Count 281 (160-400) X10*3/uL BMP 07/26/23 07:06 Sodium 140 Potassium 3.7 Chloride 101 Carbon Dioxide 30 H BUN 17 H Creatinine 1.45 H Calcium 10.0 Liver Function 07/26/23 Range/Units 07:06 Total Bilirubin 0.7 (0.0-1.0) mg/dL Direct Bilirubin 0.3 (0.0-0.5) mg/dL AST 19 (5-37) U/L ALT 13 (0-40) U/L Alkaline Phosphatase 55 (39-117) U/L Albumin 4.7 (3.5-5.0) g/dL Urine 07/26/23 Range/Units 07:06 Urine Color Dark Yellow Urine Appearance Cloudy Urine pH 6.0 (5.0-9.0) Ur Specific [place] >= 1.030 H (1.005-1.025) Urine Protein 30 (1+) H (Neg-Trace) mg/dL Urine Glucose (UA) Negative (Negative) mg/dL All other labs normal. Assessment and Plan (1) Ureterolithiasis: Status: Acute Plan Ureteroscopy We discussed the nature of the decision and reasonable alternatives for performing ureteroscopy. Options such as medical therapy were discussed. Interventions include chemical dissolution, ESWL, ureteroscopy with laser lithotripsy and stent placement, PCNL. The relative uncertainties and benefits related to each alternate procedure were adequately discussed. General surgical risks including, but not limited to - pain, bleeding, infection, myocardial infarction, pulmonary embolus, deep vein thrombosis and cerebrovascular accident which may result in further hospitalization were discussed. Full disclosure of the procedure as well as all major risks, benefits and complications were discussed including but not limited to damage to the urethra, bladder and kidney infection, damage to the ureter, stent migration or malposition, scarring to the renal pelvis, remnant stone fragments, subsequent stone passage with need for secondary procedures. The overall secondary procedure rate is approximately 10-15%. The overall clearance rate is approximately 90-95%. Success of the procedure in the short-term does not necessarily guarantee that long-term success will be maintained. Suitable follow up will need to be maintained. The patient showed understanding of discussion and wishes to proceed with - cystoscopy, retrograde, ureteroscopy, possible lithotripsy/stone basketing and stent on the right side Procedures Date of Service Date of Service: 07/26/23
--- NOTE | 2023-07-26 17:41 | MHC.SHP ---
Pre-Procedural Eval Section A - 24 Hr Update-Section A only Date of Service: 07/26/23 The patient is an INPATIENT: Yes Changes since office visit: No Cold of Flu in the past 2 weeks, No New Medical Problems, No Changes in Medication and No Patient answered all questions The patient has been examined within 24 hours of the surgical procedure. The History & Physical has been completed within 30 days and I have reviewed it.: Yes Section B - Complete if H&P > 30 days Chief Complaint: Kidney stone Allergies: Allergies Allergy/AdvReac Type Severity Reaction Status Date / Time No Known Allergies Allergy Verified 07/26/23 17:07 Plan Diagnosis/Plan: Unchanged (Cystoscopy, right retrograde, right ureteroscopy with laser lithotripsy stent placement) I have reviewed the history and physical and performed a pertinent physical examination on my patient. No changes have occurred unless specified. Time Spent With Patient Time: Total time managing care of this patient today ____ minutes.
--- NOTE | 2023-07-26 17:45 | P.CONAN_ITS ---
[facility] Active Problems Active Problems: All Active Problems Ureterolithiasis (Acute) Past Medical History Medical History (Updated 07/26/23 @ 17:07 by Rin Jones) Shingles Smoker Ureteral stone with hydronephrosis Family History Family history of problems with anesthesia: No Surgical History Surgical History (Updated 07/26/23 @ 17:07 by Rin Jones) History of placement of ear tubes History of surgery on arm History of Problems with Anesthesia: No Social History Social History Alcohol intake: current Alcohol intake frequency: 0-2 drinks per day Alcohol type: beer, wine and hard liquor Patient Tobacco Use Status: Current everyday Tobacco user Years Smoked: 1 Substance Use Type: Marijuana Meds Allergies Allergy/AdvReac Type Severity Reaction Status Date / Time No Known Allergies Allergy Verified 07/26/23 17:07 Active Medications: Current Medications Hydromorphone HCl (Hydromorphone Hcl 1 Mg/Ml Syringe) 1 mg IVPUSH Q3H PRN; Protocol PRN Reason: Pain, Moderate(Pain Scale 4-6) Last Admin: 07/26/23 16:51 Dose: 1 mg Sodium Chloride (Ns) 1,000 mls @ 100 mls/hr IVCONT .Q10H MIGUEL Last Admin: 07/26/23 10:17 Dose: 100 mls/hr Acetaminophen (Ofirmev) 1,000 mg in 100 mls @ 400 mls/hr IV PREOP ONE Stop: 07/26/23 17:54 Ondansetron HCl (Ondansetron Hcl 4 Mg/2 Ml Vial) 4 mg IVPUSH Q8H PRN PRN Reason: Nausea and Vomiting Exam Height,Weight and Vital Signs: Height 5 ft 5 in Weight 66.9 kg Last Vital Signs Temp 98.2 F 07/26/23 16:19 Pulse 72 07/26/23 16:19 Resp 18 07/26/23 16:19 BP 120/65 07/26/23 16:19 Pulse Ox 100 07/26/23 16:19 O2 Del Method Room Air 07/26/23 16:19 Pertinent Lab Results Pertinent Lab Results: Laboratory Tests 07/26/23 07:06 WBC 14.6 H RBC 4.68 Hgb 15.3 Hct 44.4 MCV 94.9 MCH 32.7 MCHC 34.5 RDW 12.4 Plt Count 281 MPV 9.6 Immature Gran % (Auto) 0.4 Neut % (Auto) 69.6 Lymph % (Auto) 15.3 L [place] % (Auto) 8.9 Eos % (Auto) 5.3 H Baso % (Auto) 0.5 Lymph # (Auto) 2.2 [place] # (Auto) 1.3 H Eos # (Auto) 0.8 H Baso # (Auto) 0.1 Abs Immat Gran (auto) 0.06 H Absolute Neuts (auto) 10.2 H Absolute Nucleated RBC 0.000 Nucleated RBC % (auto) 0.0 Sodium 140 Potassium 3.7 Chloride 101 Carbon Dioxide 30 H Anion Gap 13 BUN 17 H Creatinine 1.45 H Estim Creat Clear Calc 64.2 Estimated GFR 57 Random Glucose 90 Calcium 10.0 Total Bilirubin 0.7 Direct Bilirubin 0.3 AST 19 ALT 13 Alkaline Phosphatase 55 Total Protein 7.4 Albumin 4.7 Lipase 42 Urine Color Dark Yellow Urine Appearance Cloudy Urine pH 6.0 Ur Specific [place] >= 1.030 H Urine Protein 30 (1+) H Urine Glucose (UA) Negative Urine Ketones 15 Urine Blood Large (3+) H Urine Nitrite Negative Ur Leukocyte Esterase Small (1+) H Urine RBC >20 H Urine WBC 11-20 H Ur Squamous Epith Cells 3-5 Calcium Oxalate Crystal Present Urine Bacteria None Seen Hyaline Casts 0-2 Airway Mallampati Class: I TM Dist: >3cm Neck ROM: Full Assessment and Plan Assessment Anesthesia Assessment: Anesthesia Plan Discussed, Smoking Cess. Discussed and Chart Reviewed Final Anesthetic Review Family History of Problems with Anesthesia: No History of Problems with Anesthesia: No NPO: Yes ASA Class: II and Emergency Final Preanesthetic Review: No Changes in Pt Med Stat, Meds/Allgs Chart Reviewed, Consent Obtained/Reviewed and Anes Risks/Benef Reviewed Patient Risk: Intermediate Procedure Risk: Low Anesthetic Plan Anesthetic Plan: GA Disposition: Standard PACU
--- NOTE | 2023-07-26 18:36 | W.PM.OPN ---
Operative Note Operative Note Date of Service: 07/26/23 Narrative: PreOperative Diagnosis: Right distal ureteric stone Post Operative Diagnosis: Right distal ureteric stone Procedure: - cystoscopy, right retrograde - right dilatation of ureteric orifice under fluoroscopy - right ureteroscopy, laser lithotripsy, stone basketing - right stent placement Surgeon: Dr Srinivas Fernández Anesthesia: General Indications for procedure: Right distal ureteric stone 2nd presentation through emergency room Procedure: After informed consent was verified the patient was brought to the operating room and placed in a supine position. Anesthesia was administered per protocol. The patient was placed in a modified dorsal lithotomy position and prepped and draped in a sterile fashion. Safety pause time-out and side of surgery were confirmed. Images were available for review. Antibiotic administration confirmed. A 22 [place] cystoscope was inserted per urethra - circumcised, narrowed meatus, did require dilatation using meatal dilator. The urethra was without abnormality. The bladder was normal in its entirety. Both ureteric orifices were seen in normal position. The right ureteric orifice was cannulated and a retrograde examination was performed. Filling defect distal ureter with hydronephrosis . A Sensor guidewire was placed up to the level of the renal pelvis under fluoroscopy. The rigid cystoscope was removed. A [place] dilator was placed over the Sensor guidewire and used to dilate the ureteric orifice under fluoroscopy. The dilator was removed. The semi rigid ureteral scope was placed alongside the Sensor guidewire. Stone encountered. Using a 365 micro holmium laser fiber the stone was broken into small pieces using a combination of hammer and dusting techiques. Stone fragments were removed from the ureter using a 2.9 [place] 0 tip basket basket. Once the fragments were removed a decision was made to place a ureteric stent. Based on the height of the patient a 6 Fr x 24 stent was used. The string was removed from the stent prior to placement The rigid cystoscope was backloaded over the wire and advanced into the bladder. A 6 [place] by 24 cm double-J stent was placed into the renal pelvis and bladder under a combination of fluoroscopy and direct visualization. The bladder was emptied. The patient tolerated the procedure well and was extubated in the operating room. They were transferred in stable condition to the recovery area. Pathology: stones Drains: Double J stent as described above
[2023-07-26] MEDS: Phenazopyridine HCL 100 MG TABLET PO (19:04)
[2023-07-26] MEDS: oxyCODONE HCl Immed Release 5 MG TABLET PO (19:23)
[2023-08-21 18:58] LABS: Stone Source RIGHT URETERAL STONE
== END 2023-07-26 19:50 | disposition home or self-care (01) ==
LOC: HO.ED 09:28 → HO.SSS 09:41
PROVIDERS: Emergency Provider Emergency Medicine; Visit Provider Urology
PROC: (CPT 52356; principal; 2023-07-26 17:30)
DX: N13.2 Hydronephrosis with renal and ureteral calculous obstruction (principal)
CPT/HCPCS: 52356; 36415; 76775; 80048; 80076; 81001; 82365; 83690; 85025; 87086; 88300; 99285; C1758; C1769; C2617; J0131; J1100; J1170; J1885; J1956; J2250; J2405; J2704; J3010; Q9967

== ENCOUNTER → 2023-07-26 09:28 | Outpatient (BNV) | payer OTHER, SELFPAY | PROVIDERS: Emergency Provider Emergency Medicine; Visit Provider Urology | DX: N20.1 Calculus of ureter (principal) | CPT/HCPCS: 52356; 74420; 99284 ==

== ENCOUNTER 2023-08-06 12:40 | Outpatient (AMB) | payer OTHER, SELFPAY ==
--- NOTE | 2023-08-06 13:02 | A.OFFVIS_ITS ---
Intake Visit Reasons: cysto stent removal Intake Note: Patient presents today for a CYSTOSCOPY Procedure: Meds: Tamsulosin & Pyridium Allergies to Antibiotic: No Known Allergies Blood Thinner: None Urinalysis test clear for Cysto? Disposable Uro-G HD Cystoscope Cannula: Lot: [id number] Exp: 03/12/2026 Product Grader Required: No Accompanied by: Self / Same As Patient Allergies No Known Allergies Allergy (Verified 08/06/23 13:04) HPI Comments Details: Manuel is a pleasant male. He has seen for the following urologic conditions - nephrolithiasis Seen in hospital and underwent procedure for right UVJ stone Here for stent removal Stone composition pending Three-month follow-up renal ultrasound Nephrolithiasis Emergency room presentation 08/01 right UVJ stone 7 mm and hydronephrosis on CT Has not pass stone Does have a family history of stones Imaging - 08/01 CT Mild to moderate right-sided hydroureteronephrosis secondary to a 7 mm calculus at the right junction Intervention - 08/01 right-sided ureteroscopy [facility] Medical History (Updated 07/31/23 @ 00:02 by Galilea Meredith) Shingles Smoker Ureteral stone with hydronephrosis Surgical History (Updated 07/26/23 @ 17:07 by Rin Jones) History of placement of ear tubes History of surgery on arm Social History Alcohol intake: current Alcohol intake frequency: 0-2 drinks per day Alcohol type: beer, wine and hard liquor Patient Tobacco Use Status: Current everyday Tobacco user Years Smoked: 1 Substance Use Type: Marijuana Review of Systems Const Denies chills and Denies fever(s) Card Reports no additional complaints and Denies syncope Resp Denies cough GI Denies abdominal pain and Denies heartburn Reports as per HPI and Denies change in libido Neuro Denies syncope Psych Denies change in libido Endo Denies change in libido Physical Exam Const General: cooperative, healthy appearing, comfortable and no acute distress Orientation/consciousness: patient oriented x3 HEENT Face and sinus: Yes normal facial exam Mouth: moist mucous membranes Neck Neck: Yes normal visual inspection, Yes full ROM and Yes trachea midline Chest Chest palpation & inspection: normal inspection of the chest Resp Effort & Inspection: normal respiratory effort, able to speak in complete sentences and no respiratory distress GI Inspection: Yes normal to inspection Back/Spine/Pelvis Cervical Spine: normal cervical lordosis Thoracic/Lumbar Spine: thoracic and lumbar spine normal to inspection Skin General skin exam: no rashes or lesions noted Neuro General: patient oriented x3, gait normal, tone normal and moves all extremities Extrem General: Yes normal to inspection and Yes capillary refill normal Office Procedures Cystoscopy Consent Discussed risk and benefit or proposed procedure with the patient. Information consent for procedure given to the patient. Discussed technical aspects, risks, benefits and alternatives in full. Addressed all of the patient's questions and concerns regarding the procedure. The patient demonstrated knowledge and understanding. They wish to proceed with this procedure. Preparation The patient was prepped in the usual manner. A biology tutor was present and in the room. Genitalia was prepped with betadine solution in a sterile manner. Lidocaine Jelly 2% was placed into the urethra and 16Fr flexible Olympus cystoscope was inserted into the meatus after adequate lubrication. Procedure A well lubricated 16 Ukrainian cystoscope was placed No abnormality noted of urethra during placement Indwelling stent seen within bladder emerging from right ureteric orifices The stent was grasped with a 3 prong grasper and removed without difficulty The patient tolerated the procedure well [id number] with stent removal DISPOSABLE SCOPE URO-G FLEXIBLE SCOPE Procedure code (CPT) selection complete Office Meds lidocaine HCl 2 % mucosal jelly in applicator Performing Provider: Srinivas Fernández MD Performing Location: [facility] Administered by: Katia Albright RN on 08/06/23 13:14 Dose Route Admin Location Dispensed Lot Number Expiration Date [facility] Circulation Clerk 10 mL intra-urethral 10 mL nitrofurantoin monohydrate/macrocrystals 100 mg capsule Performing Provider: Srinivas Fernández MD Performing Location: [facility] Administered by: Katia Albright RN on 08/06/23 13:14 Dose Route Admin Location Dispensed Lot Number Expiration Date [facility] Circulation Clerk 100 mg PO 1 cap naproxen 500 mg tablet Performing Provider: Srinivas Fernández MD Performing [facility] Administered by: Katia Albright RN on 08/06/23 13:14 Dose Route Admin Location Dispensed Lot Number Expiration Date [facility] Circulation Clerk 500 mg PO 1 tab Results AMB Urinalysis, Automated UA Leukoctes 15 Faheem/uL Last Edit by QUINTEN Tran on 08/06/23 13:09 UA Nitrite Negative Last Edit by QUINTEN Tran on 08/06/23 13:09 UA Urobilinogen 0.2 mg/dL Last Edit by QUINTEN Tran on 08/06/23 13:0 9 UA Protein 100 mg/dL Last Edit by QUINTEN Tran on 08/06/23 13:09 2+ Gabi Gandhi 08/06/23 13:09 UA pH 7.5 Last Edit by QUINTEN Tran on 08/06/23 13:09 UA Blood 200 Hunter/uL Last Edit by QUINTEN Tran on 08/06/23 13:09 3+ Gabi Gandhi 08/06/23 13:09 UA Specific [place] 1.010 Last Edit by QUINTEN Tran on 08/06/23 13: 09 UA Ketone Negative Last Edit by QUINTEN Tran on 08/06/23 13:09 UA Bilirubin 0 mg/dL Last Edit by QUINTEN Tran on 08/06/23 13:09 UA Glucose 0 mg/dL Last Edit by QUINTEN Tran on 08/06/23 13:09 Results Reviewed Results Reviewed: Laboratory Last Values Urine pH (Auto) 7.5 08/06/23 13:08 Specific [place] (Auto) 1.010 08/06/23 13:08 Urine Protein (Auto) 100 mg/dL 08/06/23 13:08 Glucose (UA)(Auto) 0 mg/dL 08/06/23 13:08 Urine Ketones (Auto) Negative 08/06/23 13:08 Urine Blood (Auto) 200 Hunter/uL 08/06/23 13:08 Urine Nitrite (Auto) Negative 08/06/23 13:08 Urine Bilirubin (Auto) 0 mg/dL 08/06/23 13:08 Urine Urobilinogen (Auto) 0.2 mg/dL 08/06/23 13:08 Leukocyte Esterase (Auto) 15 Faheem/uL 08/06/23 13:08 Assessment & Plan Assessment & Plan (1) Ureterolithiasis: Code(s): N20.1 - Calculus of ureter Category: Medical Plan Three-month follow-up renal ultrasound Orders: Orders US renal BI 3 Months N20.1 - Calculus of ureter AMB Urinalysis Automated Today Z13.9 - Encounter for screening, unspecified AMB Cystoscopy Today N20.1 - Calculus of ureter Patient Instructions: Imaging studies, laboratory and physical exam results were discussed and reviewed in detail. No major barriers to patient understanding were identified. An opportunity to ask questions regarding the treatment plan was provided. All questions were answered. The patient expressed understanding and agreement with the above treatment plan. The patient is aware they should contact our office by phone for worsening of their current condition or the appearance of new urologic symptoms. Compliance is encouraged with any medications and followup testing that is ordered. It is a privilege to participate in the urologic care of your patient. If you have any questions or concerns regarding treatment for the above conditions, or other urologic issues, please do not hesitate to contact me. The office telephone contact is [phone]. This note is constructed using voice recognition software. While every effort has been made to ensure accuracy fugitive investigator errors may have been included. Yours sincerely, Dr Srinivas Fernández MD, [facility] - Urology Providers of Expert, Compassionate Care for the Genitourinary System Coding Level of Care Code Est Pt Level 3 (97260) Diagnoses Ureterolithiasis N20.1 CPT Codes Cystoscopy - CPT: 37067-[id number] with stent removal ([id number])
== END 2023-08-06 13:46 | disposition home or self-care (01) ==
PROVIDERS: Visit Provider Urology
DX: Z13.9 Encounter for screening, unspecified (principal); N20.1 Calculus of ureter
CPT/HCPCS: 52310

== ENCOUNTER → 2023-08-06 12:40 | Outpatient (BNVA) | payer OTHER, SELFPAY | PROVIDERS: Visit Provider Urology | DX: Z48.816 Encounter for surgical aftercare following surgery on the genitourinary system (principal); Z87.442 Personal history of urinary calculi | CPT/HCPCS: 52310; 81003 ==

== ENCOUNTER 2023-10-29 16:12 | Outpatient (REF) | payer OTHER, SELFPAY ==
--- NOTE | ~2023-10-29 | US_ITS ---
EXAMINATION: US KIDNEYS BILATERAL CLINICAL INFORMATION: Calculus of ureter. COMPARISON: Renal ultrasound 07/26/2023. CT abdomen and pelvis 07/23/2023. TECHNIQUE: Real-time imaging of the kidneys. FINDINGS: RIGHT KIDNEY: 9.4 x 5.4 x 6.1 cm (SAG x AP x TRV). The kidney is normal in size, contour, and echogenicity. Renal cortical thickness is normal. No focal parenchymal lesions or hydronephrosis. Several tiny nonobstructing calculi throughout the kidney, the largest measuring 2 mm. LEFT KIDNEY: 10.0 x 5.4 x 4.5 cm (SAG x AP x TRV). The kidney is normal in size, contour, and echogenicity. Renal cortical thickness is normal. No focal parenchymal lesions or hydronephrosis. Several tiny nonobstructing calculi in the lower pole, the largest measuring 3 mm. US/US renal BI IMPRESSION: Nonobstructing bilateral renal calculi. Electronically signed by: Jorge Lozano MD 11/13/2023 10:56 AM EDT
== END 2023-10-29 16:13 | disposition home or self-care (01) ==
LOC: HO.US 16:12
PROVIDERS: Visit Provider Urology
DX: N20.1 Calculus of ureter (principal)
CPT/HCPCS: 76775

== ENCOUNTER 2023-11-05 13:10 | Outpatient (AMB) | payer OTHER, SELFPAY ==
--- NOTE | 2023-11-05 13:29 | A.OFFVIS_ITS ---
Intake Visit Reasons: 3m/US(set) Intake Note: Patient presents today for follow up on: Ureterolithiasis and ultrasound results Imaging Completed: 10/29/23 Urology Medications: none Allergies to Antibiotic: No Known Allergies Blood Thinner: None Health Care Liaison Required: No Accompanied by: Self / Same As Patient Allergies No Known Allergies Allergy (Verified 11/05/23 14:27) HPI Comments Details: Manuel is a very pleasant 33-year-old male patient. He presents to the office today for follow-up of his nephrolithiasis. Of note, patient underwent right-sided cystoscopy, right retrograde, right dilatation of ureteric orifice, right ureteroscopy, right laser lithotripsy and stone basketing with right stent placement on 07/26/23 followed by in office cystoscopy for right- sided stent removal 08/06/23. In discussion with the patient today he reports since his last office visit here approximately 3 months ago he has been doing well. Recent renal imaging results reviewed with the patient today. Bilateral kidneys with no lesions or hydronephrosis. Bilateral several tiny nonobstructing calculi throughout the kidney largest measuring 2 to 3 mm. He discusses at length his family history of nephrolithiasis. He currently denies any bothersome urinary issues or concerns. He reports be happy with current voiding parameters. In office urinalysis results reviewed with the patient today. We discussed at length potential causes of nephrolithiasis as well as further workup to include metabolic workup. When asked he denies urinary urgency, urinary frequency, incontinence, nocturia, hematuria, dysuria, foul smelling urine, changes to urinary stream, flank pain, fever, and or chills. He otherwise offers no other issues or concerns at this time. [facility] Medical History Shingles Smoker Ureteral stone with hydronephrosis Surgical History History of placement of ear tubes History of surgery on arm Social History Alcohol intake: current Alcohol intake frequency: 0-2 drinks per day Alcohol type: beer, wine and hard liquor Patient Tobacco Use Status: Current everyday Tobacco user Years Smoked: 1 Substance Use Type: Marijuana Review of Systems Const All systems reviewed & are unremarkable except as noted in HPI and below Physical Exam Const General: cooperative, healthy appearing, comfortable, no acute distress, well de veloped, alert and awake Nutritional Appearance: average body habitus Orientation/consciousness: patient oriented x3 Limitations: no limitations HEENT Head: Yes normal to inspection, Yes normocephalic and Yes atraumatic Ears: hearing grossly normal bilaterally Eyes General: appearance normal, both eyes and all related structures Neck Neck: Yes normal visual inspection and Yes trachea midline Chest Chest palpation & inspection: normal inspection of the chest Resp Effort & Inspection: normal respiratory effort and able to speak in complete sentences Cardio Rate: regular rate GI Inspection: Yes normal to inspection General: Yes no CVA tenderness Back/Spine/Pelvis Back: no CVA tenderness Skin General skin exam: no rashes or lesions noted Neuro General: patient oriented x3 Extrem General: Yes normal to inspection Psych Appearance: grossly normal and well kempt Mental Status: mental status grossly normal Speech and movement: Normal speech and movement present and Clear speech present Affect: normal affect Attitude: cooperative Thought process: Normal thought process present Thought content: Normal thought content present Insight: Fair insight present (Psych) Judgement: Fair judgement present (Psych) Results AMB Urinalysis, Automated UA Leukoctes 0 Faheem/uL Last Edit by Samson Sánchez on 11/05/23 14:11 UA Nitrite Negative Last Edit by The Musefoster Sánchez on 11/05/23 14:11 UA Urobilinogen 0.2 mg/dL Last Edit by SergioThe Young Turksantoine Sánchez on 11/05/23 14:11 UA Protein 0 mg/dL Last Edit by Samson Sánchez on 11/05/23 14:11 UA pH 7.0 Last Edit by Samson Sánchez on 11/05/23 14:11 UA Blood 0 Hunter/uL Last Edit by Movellasantoine Sánchez on 11/05/23 14:11 UA Specific [place] 1.015 Last Edit by SergioThe Young Turksantoine Sánchez on 11/05/23 14:11 UA Ketone Negative Last Edit by Samson Sánchez on 11/05/23 14:11 UA Bilirubin 0 mg/dL Last Edit by Samson Eldafrankie on 11/05/23 14:11 UA Glucose 0 mg/dL Last Edit by Samson Sánchez on 11/05/23 14:11 Results Reviewed Results Reviewed: Laboratory Last Values Urine pH (Auto) 7.0 11/05/23 14:09 Specific [place] (Auto) 1.015 11/05/23 14:09 Urine Protein (Auto) 0 mg/dL 11/05/23 14:09 Glucose (UA)(Auto) 0 mg/dL 11/05/23 14:09 Urine Ketones (Auto) Negative 11/05/23 14:09 Urine Blood (Auto) 0 Hunter/uL 11/05/23 14:09 Urine Nitrite (Auto) Negative 11/05/23 14:09 Urine Bilirubin (Auto) 0 mg/dL 11/05/23 14:09 Urine Urobilinogen (Auto) 0.2 mg/dL 11/05/23 14:09 Leukocyte Esterase (Auto) 0 Faheem/uL 11/05/23 14:09 Date of Service: 10/29/23 Procedure(s): US renal BI FINDINGS: RIGHT KIDNEY: 9.4 x 5.4 x 6.1 cm (SAG x AP x TRV). The kidney is normal in size, contour, and echogenicity. Renal cortical thickness is normal. No focal parenchymal lesions or hydronephrosis. Several tiny nonobstructing calculi throughout the kidney, the largest measuring 2 mm. LEFT KIDNEY: 10.0 x 5.4 x 4.5 cm (SAG x AP x TRV). The kidney is normal in size, contour, and echogenicity. Renal cortical thickness is normal. No focal parenchymal lesions or hydronephrosis. Several tiny nonobstructing calculi in the lower pole, the largest measuring 3 mm. IMPRESSION: Nonobstructing bilateral renal calculi. Assessment & Plan Assessment & Plan (1) Nephrolithiasis: Code(s): N20.0 - Calculus of kidney Category: Medical Plan In office urinalysis results reviewed with the patient today; as noted above. Recent renal imaging results reviewed with the patient today; as noted above. Discussed, educated, and stressed the importance of adequate hydration relation to nephrolithiasis as well as overall health and well being. Continue adding 1 oz of lemon juice to water daily. Start vitamin B6 as discussed and prescribed. Discussed further metabolic workup with 24 hour urine collection Patient currently denies any bothersome urinary issues or concerns. He reports be happy with current voiding parameters. Discussed at length potential causes of nephrolithiasis. Will obtain 24 hour urine collection as discussed. Follow-up in 3 months with 24 hour urine collection to be completed prior; or sooner with any issues, concerns, and or questions. Orders: Orders URORISK 11/05/23 N20.0 - Calculus of kidney AMB Urinalysis Automated 11/05/23 Z13.9 - Encounter for screening, unspecified Medications: New pyridoxine (vitamin B6) 100 mg PO DAILY 90 tabs 1RF 90 days Discontinued naproxen Discontinued Reason: Patient Completed Course 500 mg PO BID 7 days PRN 14 tabs 0RF pain tamsulosin Discontinued Reason: Patient Completed Course 0.4 mg PO BEDTIME 14 days 14 caps 0RF oxycodone Partial Fill upon patient request. Discontinued Reason: Doctor's Order 5 mg PO Q8H 3 days PRN 9 caps 0RF pain tamsulosin Discontinued Reason: Patient Completed Course 0.4 mg PO DAILY 7 days 7 caps 0RF ondansetron Discontinued Reason: Patient Completed Course 4 mg PO Q6H PRN 8 tabs 0RF nausea and vomiting naproxen Discontinued Reason: Patient Completed Course 500 mg PO BID 7 days PRN 14 tabs 0RF pain oxycodone-acetaminophen 5-325 mg Partial Fill upon patient request. Discontinued Reason: Patient Completed Course 1 tab PO Q8H 3 days PRN 8 tabs 0RF pain phenazopyridine Discontinued Reason: Patient Completed Course 100 mg PO TID 4 days PRN 12 tabs 0RF Spasm Patient Instructions: The patient had an opportunity to ask questions regarding the treatment plan. All questions were answered. Physical exam, labs, and imaging were discussed and reviewed in detail. As well as risks, benefits, and discussion of treatment choices. No major barriers to understanding were identified. The patient expressed understanding and agreement with the above treatment plan. The patient was made aware they should contact our office by phone for worsening of their current condition, the appearance of new symptoms, or with any questions or concerns. Compliance is encouraged with any medications and follow up testing that is ordered. It is a privilege to be allowed the opportunity to participate in? your urological care.? Again, if you have any questions or concerns If you have any questions or concerns please do not hesitate to contact me. The office is [phone]. This note is constructed using voice recognition software. While every effort has been made to ensure accuracy surveyor mine errors may have been included. Yours sincerely, KIRBY Gallego Coding Level of Care Code Est Pt Level 4 (64027) Diagnoses Nephrolithiasis N20.0
== END 2023-11-05 14:03 | disposition home or self-care (01) ==
PROVIDERS: Visit Provider Nurse Practitioner Family
DX: N20.0 Calculus of kidney (principal)
CPT/HCPCS: 99214

== ENCOUNTER → 2023-11-05 13:10 | Outpatient (BNVA) | payer OTHER, SELFPAY | PROVIDERS: Visit Provider Nurse Practitioner Family | DX: N20.0 Calculus of kidney (principal) | CPT/HCPCS: 81003 ==